=== PATIENT | female | born 1990 | race Caucasian/White ===

== ENCOUNTER 2023-09-09 14:51 | Inpatient (IN) | payer BC ==
[~2023-09-09] VITALS: Ht 175.4 cm; Wt 127.7 kg
[2023-09-09] VITALS (29 sets, daily range): BP systolic 121–153; BP diastolic 59–96; PULSE 59–91; TEMP 98
[~2023-09-09 14:51] MED LIST: PEPCID 20MG TAB20 MG PO; PRENATAL TABLET PO
[2023-09-09] MEDS ORDERED: LR 1,000 ML IV SCH ×2 (15:30→16:00)
--- NOTE | 2023-09-09 15:45 | NUR ---
PT UP TO VOID, UNABLE TO TRACE PT VS. PT AWAKE AND ALERT X3 OBSERVED PER THIS RN. PT SOCIAL AND VERBALLY UNDERSTANDING TO PLAN OF CARE.
[2023-09-09 15:52] LABS: BASO % 0.3 % (0.0-2.0); EOS % 0.4 % (0.0-4.0); GRAN # 7.6 K/mm3 (1.4-6.5); GRAN % 76.8 % (42.2-75.2); HEMOGLOBIN 10.4 g/dl (12.5-16.0); LYMPH # 1.4 K/mm3 (1.2-3.4); LYMPH % 14.1 % (20.0-51.0); MEAN CELL VOLUME 93 fl (80.0-100.0); MEAN CORPUSCULAR HEMOGLOBIN 31 pg (27-31); MEAN CORPUSCULAR HGB CONC 34 g/dl (33.0-37.0); MEAN PLATELET VOLUME 12.6 fl (7.4-10.4); MONO # 0.8 K/mm3 (0.1-0.6); PLATELET COUNT 202 K/mm3 (130-400); RED BLOOD COUNT 3.31 M/mm3 (4.10-5.30); REDCELL DISTRIBUTION WIDTH-CV 13.8 % (11.5-14.5)
[2023-09-09 15:56] LABS: HEMATOCRIT 30.7 % (37.0-47.0)
[2023-09-09] MEDS ORDERED: hydrALAZINE 20 MG/ML 1 ML VIAL IV PRN (16:00)
[2023-09-09] MEDS ORDERED: miSOPROStol 25 MCG (1/4th of 100 MCG) TAB VG ONE ×2 (16:00→20:10)
--- NOTE | 2023-09-09 16:10 | NUR ---
THIS RN INSERTS CYTOTEC VAGINALLY PER PROTOCOL PER ORDERS, 25MCG. PT POSITIONED SUPINE WEDGE RIGHT. PT EDUCATED PER THIS RN THAT SHE MUST LAY BACK FOR 1 HOUR, THEN SHE CAN REPOSITION CAREFULLY PT PREFERS FOR ANOTHER HOUR, THEN PT CAN GET UP AFTER THE 2 HOURS BED REST. PT ALSO EDUCATED ON READMINISTRATION OF CYTOTEC PER ORDERS AT 2009 THIS EVENING. PT VERBALLY UNDERSTANDING, AWAKE AND ALERT X3, VS STABLE, EFM CAT 1. PT NOT ROBERT.
[2023-09-09 16:11] LABS: ALBUMIN 2.6 g/dL (3.5-5.0); BILIRUBIN,TOTAL 0.3 mg/dL (0.2-1.2); CALCIUM 8.9 mg/dL (8.4-10.2); CREATININE, serum 0.65 mg/dL (0.57-1.11); POTASSIUM 3.8 mEq/L (3.5-4.5); TOTAL PROTEIN 6.2 g/dl (6.2-8.1)
[2023-09-09 16:23] LABS: MAGNESIUM 1.8 mg/dL (1.6-2.6)
[2023-09-09] MEDS ORDERED: LR & Oxytocin 500 ML IV SCH (19:45)
--- NOTE | 2023-09-09 22:49 | NUR ---
PT UP TO THE BATHROOM AT THIS TIME. STATES SHE IS STARTING TO FEEL MORE CRAMPY AND SOME OF WHAT SHE BELIEVES TO BE CONTRACTIONS. D/T MATERNAL HABITUS, IT HAS BEEN DIFFICULT TO TRACE ON THE MONITOR.
--- NOTE | 2023-09-09 23:20 | NUR ---
THE PATIENT IS CURRENTLY SLEEPING ON HER RIGH LATERAL. TRACING OF CONTRACTIONS HAVE BEEN VERY DIFFICULT AT THIS TIME. THERE HAVE BEEN A COUPLE OF DECELERTATIONS INTO THE LOW 100'S, BETWEEN 105-115. IT IS NOT KNOWN AT THIS TIME IF IT WAS CONNECTED TO A CONTRACTION D/T THE DIFFICULTY IN TRACING, UNKOWN ETIOLOGY OF DECELERATIONS FROM 2247 TO 2314. AT 2315 THE PATIENT WAS READJUSTED IN HER POSITIONING. NO OTHER CONCERNS AT THIS TIME.
--- NOTE | 2023-09-09 23:30 | NUR ---
UNABLE TO TRACE CONTRACTIONS D/T MATERNAL POSITIONING ON RIGHT LATERAL.
[2023-09-10] VITALS (72 sets, daily range): BP systolic 103–168; BP diastolic 57–102; PULSE 55–686; TEMP 97.8–98.3
--- NOTE | 2023-09-10 00:45 | NUR ---
REPOSITIONING TOCO, PT LAYING ON RIGHT LATERAL. DIFFICULTY TRACING CONTRACTIONS D/T MATERNAL POSITIONING.
--- NOTE | 2023-09-10 01:00 | NUR ---
DIFFICULTY TRACING CONTRACTIONS D/T MATERNAL POSITIONING. THIS RN AT BEDSIDE ATTEMPTING TO REPOSITION IT.
--- NOTE | 2023-09-10 01:22 | NUR ---
DIFFICULTY TRACING CONTRACTIONS D/T MATERNAL POSITIONING AND HABITUS, ENCOURAGED PATIENT TO SIT UP FOR A WHILE. PT REPOSITIONED TO HEATH POSITION.
--- NOTE | 2023-09-10 09:06 | NUR ---
AT BEDSIDE. SVE /-2. AROM WITH CLEAR FLUID AT 0906. PT TOLERATED PROCEDURE WELL. VORB TO INCREASE PITOCIN TO NEW MAX OF 30MU DUE TO IRREGULAR, SPACED OUT, NON LABORING CONTRACTION PATTERN. NO FURTHER ORDERS AT THIS TIME.
--- NOTE | 2023-09-10 10:57 | NUR ---
DIFFICULTY TRACING TOCO DUE TO MATERNAL POSITIONING AND HABITUS. CONTRACTION PALPABLE CUE 2-3 MINUTES. MODERATE. PT DENIES PAIN WITH CONTRACTIONS BUT STATES "I AM STARTING TO BE ABLE TO FEEL THEM, BUT NOTHING TERRIBLE." PT CONTINUES TO LEAK MODERATE AMOUNT OF CLEAR FLUID. CATEGORY 1 EFM TRACING.
--- NOTE | 2023-09-10 13:03 | NUR ---
ON UNIT, LABOR DENIES INTENSE PAIN WITH CONTRACTIONS. CATEGORY 1 EFM TRACING. PER VOR, START A PITOCIN BREAK. ALLOW PATIENT TO EAT A MEAL, TAKE A SHOWER, AND RESET. WILL RESTART PITOCIN AT 2MU PER PROTOCOL AND CONTINUE TO INCREASE DOSE BY 2MU Q15-20 MINUTES UNTIL A MAX OF 30MU ONCE WE RESTART THE PIT. PITOCIN OFF AT THIS TIME. PT OFF MONITORS. AMBULATORY TO SHOWER AND MEAL TRAY ORDERED. PT AGREEABLE AND APPRECIATIVE TO POC.
--- NOTE | 2023-09-10 14:15 | NUR ---
PT BACK IN BED. EFM TRACING CATEGORY 1. PT DENIES FEELING CONTRACTIONS AT THIS TIME. MATERNAL BP STABLE. PITOCIN RESTARTED AT 2MU PER MEGGAN POLANCO. CONTINUOUS MONITORING RESUMES AT THIS TIME.
--- NOTE | 2023-09-10 17:14 | NUR ---
AT BEDSIDE. SVE /-2. CATEGORY 1 EFM TRACING. IRREGULAR, MILD CONTRACTION PATTERN. PT DENIES PAIN WITH CONTRACTIONS. OPTIONS DISCUSSED. CURRENT POC TO CONTINUE WITH IOL WITH PITOCIN. PITOCIN CURRENTLY AT 18MU, WILL TITRATE TO 30MU PER ORDER, IF NO LABOR PROGRESSION, VORB TO ATTEMPT ANOTHER PITOCIN BREAK X1 HR. PT EDUCATED ON OPTION AT ANY TIME TO OPT OUT OF LABORING AND CHOOSE A CSECTION. PT STATES SHE IS NOT READY YET, BUT IS AWARE OF OPTIONS. PT EDUCATED ON PPH RISK DUE TO EXTENDED PITOCIN USE THROUGHOUT LABOR. DENIES FURTHER QUESTIONS OR CONCERNS.
--- NOTE | 2023-09-10 18:07 | NUR ---
PT REQUESTING THIS NURSE AT BEDSIDE. MULTIPLE QUESTIONS ASKED AND ANSWERED REGARDING CSECTION PROCEDURE AND RECOVERY. PT STATES "I AM LEANING TOWARDS THAT AT THIS TIME. I THINK I WANT A CSECTION. CAN YOU ASK ." NOTIFIED, AGREES TO CSECTION. EN ROUTE TO HOSPITAL AT THIS TIME AND STATES "IF SHE WANTS ONE, LETS GO AHEAD AND GET IT STARTED." YASMEEN DOMÍNGUEZ ALLIGATOR TRAPPER ON UNIT AND NOTIFIED. WILL BEGIN PREPPING PT FOR CSECTION.
[2023-09-10] MEDS ORDERED: Ondansetron 4 MG/2 ML VIAL ONE (18:14)
[2023-09-10] MEDS ORDERED: EPINEPHrine 1 MG/1 ML Ampule ONE (18:14)
[2023-09-10] MEDS ORDERED: dexAMETHasone 10 MG/ML VIAL ONE (18:14)
[2023-09-10] MEDS ORDERED: Oxytocin 10 UNITS/ML VIAL ONE (18:14)
[2023-09-10] MEDS ORDERED: Phenylephrine 10 MG/ML VIAL ONE (18:14)
[2023-09-10] MEDS ORDERED: Ketorolac 30 MG/ML VIAL ONE (18:14)
[2023-09-10] MEDS ORDERED: NS 30 ML IV ONE (18:14)
[2023-09-10] MEDS ORDERED: Azithromycin 500 MG in NS 250 ML IV ONE (18:30)
--- NOTE | 2023-09-10 18:42 | NUR ---
PT TO OR FOR C/S.
[2023-09-10] MEDS ORDERED: Loratadine 10 MG TAB PO PRN (19:45)
[2023-09-10] MEDS ORDERED: Magnes Hydrox (MOM) 80 MG/ML 30 ML CUP PO PRN (19:45)
[2023-09-10] MEDS ORDERED: oxyCODONE/Acetaminophen 5-325 MG TAB PO PRN (21:00)
[2023-09-10] MEDS ORDERED: traZODone 50 MG TAB PO PRN (21:00)
[2023-09-10] MEDS ORDERED: Naloxone 0.4 MG/ML VIAL IV PRN (21:00)
[2023-09-10] MEDS ORDERED: LR 1,000 ML IV PRN (21:00)
[2023-09-10] MEDS ORDERED: Ondansetron 4 MG/2 ML VIAL IV PRN (21:00)
[2023-09-10] MEDS ORDERED: Measles/Mumps/Rubella Virus Vaccine Live w Diluent 0.5 ML VIAL SQ SCH (21:00)
--- NOTE | 2023-09-10 23:55 | NUR ---
PT HAS HAD A SLOW TRICKLE OF BLEEDING DURING RECOVERY. AT THIS TIME SHE CALLED OUT TO SAY SHE FELT THAT SHE WAS BLEEDING ALOT. CURRENT QBL HAS REACHED 1024ML WHICH INCLUDES THE 560ML FROM THE OR. IN HOUSE AND CAME TO THE PATIENT'S BEDSIDE TO ASSESS THE PT AND HE STATES "IF SHE HAS ANOTHER GUSH OF BLEEDING IN THE AMOUNT OF THE CURRENT LOSS, GIVE PT IM METHERGINE." DID A FUNDAL MASSAGE AND MANUALLY REMOVED A CLOT FROM THE PATIENT'S VAGINAL OPENING. FUDUS FIRM, AND AT UMBILICUS. [place]TON DRAINING APPROPRIATELY. NO OTHER CONCERNS AT THIS TIME.
[2023-09-11] MEDS ORDERED: Morphine 4 MG/ML VIAL IV PRN (00:15)
[2023-09-11] MEDS ORDERED: Naloxone 0.4 MG/ML VIAL IV PRN (00:15)
[2023-09-11] MEDS ORDERED: Ibuprofen 800 MG TAB PO SCH (01:42)
[2023-09-11 05:35] VITALS: BP 138/82; PULSE 61
[2023-09-11] MEDS ORDERED: Sennosides/Docusate 8.6-50 MG TAB PO SCH (08:00)
[2023-09-11 09:19] VITALS: BP 129/82; PULSE 77; TEMP 97.7
[2023-09-11 13:44] VITALS: BP 133/79; PULSE 71; TEMP 97.5
[2023-09-11 17:01] VITALS: BP 146/87; PULSE 64; TEMP 97.4
[2023-09-11 20:00] VITALS: BP 137/80; PULSE 72; TEMP 98
[2023-09-12 07:46] VITALS: BP 134/83; PULSE 65; TEMP 98.2
[2023-09-12] MEDS ORDERED: PERCOCET 325 MG1 TA2 PO (08:50)
[2023-09-12] MEDS ORDERED: MOTRIN 800800 MG/TAB PO (08:50)
[2023-09-12 14:00] VITALS: BP 129/73; PULSE 75; TEMP 98.3
--- NOTE | 2023-09-12 16:00 | NUR ---
PT AGREEABLE AND UNDERSTANDING TO DISCHARGE PER AND PEDIATRIC DR. REEVES RN WITNESS TO PT VERBALIZATION OF DISCHARGE ORDERS AND HELPS ANSWER PT QUESTIONS. BABY SAFELY IN CAR SEAT AND PT WHEEL CHAIR OFF UNIT PER THIS RN.
== END 2023-09-12 16:00 | disposition home or self-care (01) | DRG 540 ==
LOC: LDRO 14:51 → LDR 15:03 → OB 09-11 03:08
PROVIDERS: ADMIT Obstetrics & Gynecology
PROC: 3E0P7VZ Introduction of Hormone into Female Reproductive, Via Natural or Artificial Opening (ICD-10-PCS; 2023-09-09)
PROC: 10D00Z1 Extraction of Products of Conception, Low, Open Approach (ICD-10-PCS; principal; 2023-09-10)
PROC: 10907ZC Drainage of Amniotic Fluid, Therapeutic from Products of Conception, Via Natural or Artificial Opening (ICD-10-PCS; 2023-09-10)
PROC: 3E033VJ Introduction of Other Hormone into Peripheral Vein, Percutaneous Approach (ICD-10-PCS; 2023-09-10)
DX: O13.4 Gestational [pregnancy-induced] hypertension without significant proteinuria, complicating childbirth (principal); Z37.0 Single live birth; O61.9 Failed induction of labor, unspecified; O69.81X0 Labor and delivery complicated by cord around neck, without compression, not applicable or unspecified; Z3A.38 38 weeks gestation of pregnancy
CPT/HCPCS: J0171; J0456; J0665; J0690; J1100; J1885; J2270; J2371; J2405; J2590; J7050; J7120